=== PATIENT | female | born 1990 | race Caucasian/White ===

== ENCOUNTER 2016-11-05 22:18 | Emergency (ER) | payer OTHER ==
[~2016-11-05] VITALS: Ht 165.1 cm; Wt 67.3 kg
[~2016-11-05 22:18] MED LIST: CLONIDINE HCL0.2 MG PO; CONCERTA36 MG PO; IBUPROFEN800 MG PO; Motrin PO; PRENATAL TABLE1 EACH PO; Percocet 5/325,Endoc PO; ZOLOFT100 MG PO
[2016-11-05 22:43] LABS: HEMATOCRIT 44.4 % (36.0-46.0); MCH 31.5 PG (29.0-34.0); MCHC 33.8 G/DL (30.0-36.0); MCV 93.3 FL (83-99); MEAN PLAT.VOLUME 12.4 uM^3 (9.5-12.4); PLATELET COUNT 169 K/uL (156-360); RBC DIS.WIDTH-CV 11.9 % (11.8-14.6); RBC DIS.WIDTH-SD 39.8 % (39-53); RED BLOOD COUNT 4.76 M/uL (3.80-5.20); WHITE BLOOD COUNT 15.1 K/uL (4.1-10.2)
[2016-11-05 22:52] LABS: CHLORIDE 107 mEq/L (99-109); POTASSIUM 4.1 mEq/L (3.7-5.4); SODIUM 140 mEq/L (136-147)
[2016-11-05 22:54] LABS: GLUCOSE 72 mg/dL (70-99)
[2016-11-05 22:55] LABS: ANION GAP 8 MEQ/L (2-14)
[2016-11-05 22:58] LABS: GFR ESTIMATE (CALCULATED) > 59 mL/min/; UREA NITROGEN (BUN) 13 mg/dL (9-23)
[2016-11-05 23:54] LABS: D-DIMER ELISA 0.25 mg/L FEU (< 0.57)
[2016-11-06] LABS: TROP-I INTERPRETATION NEGATIVE; TROPONIN-I < 0.01 ng/mL (0.0-0.30)
[2016-11-06] MEDS ORDERED: ZITHROMAX Z-PA250 MG PO (00:32)
[2016-11-06 00:37] VITALS: BP 140/65
== END 2016-11-06 00:43 | disposition home or self-care (01) ==
LOC: RME 22:18 → EME 22:18 → RME 11-06 00:43
DX: J06.9 Acute upper respiratory infection, unspecified (principal); R07.89 Other chest pain; F17.200 Nicotine dependence, unspecified, uncomplicated
CPT/HCPCS: 71020; 80048; 84484; 85027; 85379; 93005; 99281; 99284

== ENCOUNTER 2017-06-10 07:48 | Day surgery (SDC) | payer OTHER ==
[~2017-06-10] VITALS: Ht 166.4 cm; Wt 73.5 kg
[~2017-06-10 07:48] MED LIST changes: +ATIVAN0.5 MG PO; +BUSPAR10 MG PO; +CATAPRES0.3 MG PO; +ZITHROMAX Z-PA250 MG PO
[2017-06-10] MEDS ORDERED: ZYRTEC5 MG PO (08:25)
[2017-06-10 08:35] VITALS: BP 113/59
[2017-06-10] MEDS ORDERED: DOXYCYCLINE MO100 M1 PO (11:03)
[2017-06-10] MEDS ORDERED: MOTRIN800 MG PO (11:03)
[2017-06-10 13:18] VITALS: BP 109/73
[2017-06-10 13:53] VITALS: BP 107/63
== END 2017-06-10 14:00 | disposition home or self-care (01) ==
LOC: SDC 07:48
PROC: 10D17ZZ Extraction of Products of Conception, Retained, Via Natural or Artificial Opening (ICD-10-PCS; principal; 2017-06-10)
DX: O03.4 Incomplete spontaneous abortion without complication (principal); Z3A.10 10 weeks gestation of pregnancy; F41.9 Anxiety disorder, unspecified; F17.210 Nicotine dependence, cigarettes, uncomplicated; Z83.42 Family history of familial hypercholesterolemia; Z82.49 Family history of ischemic heart disease and other diseases of the circulatory system; Z80.3 Family history of malignant neoplasm of breast; Z80.1 Family history of malignant neoplasm of trachea, bronchus and lung; Z82.3 Family history of stroke; Z83.3 Family history of diabetes mellitus
CPT/HCPCS: 88305; J1100; J1170; J1885; J2250; J2405; J2590; J3010

== ENCOUNTER 2017-06-19 11:21 | Emergency (ER) | payer OTHER ==
[~2017-06-19] VITALS: Ht 165.1 cm; Wt 70.5 kg
[~2017-06-19 11:21] MED LIST changes: +DOXYCYCLINE MO100 M1 PO; +MOTRIN800 MG PO; +ZYRTEC5 MG PO
[2017-06-19 12:26] LABS: HEMATOCRIT 35.5 % (36.0-46.0); MCH 32.3 PG (29.0-34.0); MCHC 34.1 G/DL (30.0-36.0); MCV 94.7 FL (83-99); RBC DIS.WIDTH-SD 41.5 % (39-53); RED BLOOD COUNT 3.75 M/uL (3.80-5.20); WHITE BLOOD COUNT 7.5 K/uL (4.1-10.2)
[2017-06-19 12:49] LABS: ANION GAP 6 MEQ/L (2-14); CHLORIDE 108 MEQ/L (99-109); POTASSIUM 3.7 MEQ/L (3.7-5.4); SAMPLE HEMOLYSIS CHECK 0; SAMPLE ICTERIC CHECK 0; SAMPLE LIPEMIA CHECK 0; SODIUM 140 MEQ/L (136-147)
[2017-06-19 12:55] LABS: GFR ESTIMATE (CALCULATED) > 59 mL/min/; GLUCOSE 87 mg/dL (70-99); UREA NITROGEN (BUN) 7 mg/dL (9-23)
[2017-06-19 13:22] LABS: MEAN PLAT.VOLUME 12.2 uM^3 (9.5-12.4); PLAT.SUFFICIENCY ADEQUATE; PLATELET COUNT 225 K/uL (156-360)
[2017-06-19 14:44] LABS: INTER. NORMALIZED RATIO 1.1; PROTHROMBIN TIME 11.9 SEC (10.2-12.9)
[2017-06-19 14:46] LABS: PTT 23.5 SEC (25-37)
[2017-06-19] MEDS ORDERED: TRAMADOL HCL50 MG PO (17:13)
[2017-06-19 17:59] VITALS: BP 123/75
== END 2017-06-19 18:10 | disposition home or self-care (01) ==
LOC: EME 11:21
PROVIDERS: Nurse Practitioner Family; Obstetrics & Gynecology
DX: O03.1 Delayed or excessive hemorrhage following incomplete spontaneous abortion (principal); O03.39 Incomplete spontaneous abortion with other complications; R53.83 Other fatigue; Z98.890 Other specified postprocedural states; F17.200 Nicotine dependence, unspecified, uncomplicated
CPT/HCPCS: 76856; 80048; 85027; 85610; 85730; 99281; 99285; J2210; J3010

== ENCOUNTER 2017-10-22 11:04 | Emergency (ER) | payer OTHER ==
[~2017-10-22] VITALS: Ht 165.1 cm; Wt 75.1 kg
[~2017-10-22 11:04] MED LIST changes: +TRAMADOL HCL50 MG PO
[2017-10-22 11:49] LABS: HEMATOCRIT 45.7 % (36.0-46.0); HEMOGLOBIN 15.2 G/DL (11.9-15.5); MCH 30.8 PG (29.0-34.0); MCHC 33.3 G/DL (30.0-36.0); MCV 92.7 FL (83-99); RBC DIS.WIDTH-SD 44.3 % (39-53); RED BLOOD COUNT 4.93 M/uL (3.80-5.20); WHITE BLOOD COUNT 7.6 K/uL (4.1-10.2)
[2017-10-22 12:00] LABS: ALBUMIN 4.2 g/dL (3.2-4.8)
[2017-10-22 12:01] LABS: CHLORIDE 110 mEq/L (99-109); POTASSIUM 4.7 mEq/L (3.7-5.4); SODIUM 143 mEq/L (136-147)
[2017-10-22 12:03] LABS: GLUCOSE 75 mg/dL (70-99); TOTAL PROTEIN 7.7 g/dL (6.4-8.3)
[2017-10-22 12:05] LABS: TOTAL BILIRUBIN 0.5 mg/dL (0.0-1.0)
[2017-10-22 12:06] LABS: ALKALINE PHOSPHATASE 76 IU/L (3-129); GFR ESTIMATE (CALCULATED) > 59 mL/min/
[2017-10-22 12:08] LABS: AST (GOT) 21 IU/L (2-34); UREA NITROGEN (BUN) 16 mg/dL (9-23)
[2017-10-22 12:09] LABS: ALT (GPT) 19 IU/L (3-49)
[2017-10-22 12:15] LABS: QUANTITATIVE HCG < 4.0 MIU/ML
[2017-10-22 12:23] LABS: PLAT.SUFFICIENCY ADEQUATE; PLATELET COUNT 204 K/uL (156-360)
[2017-10-22 13:11] LABS: APPEARANCE CLOUDY ((CLEAR)); BILIRUBIN NEGATIVE; BLOOD LARGE; COLOR YELLOW ((YELLOW)); GLUCOSE (STRIP) NEGATIVE; KETONES NEGATIVE; LEUKOCYTES MODERATE; NITRITE NEGATIVE; PROTEIN (STRIP) NEGATIVE; SPECIFIC GRAVITY 1.024 (1.000-1.030); UROBILINOGEN 0.2 MG/DL (0.2-1.0)
[2017-10-22 13:21] LABS: LIPASE 28 U/L (1.0-51.0)
[2017-10-22 13:46] LABS: BACTERIA RARE /HPF; EPITHELIAL CELLS 2+ /HPF; HYALINE CASTS 0-5 /LPF; MUCUS TRACE /LPF; RED BLOOD CELLS 0-5 /HPF (0-5); UCUL ADDED? YES; WHITE BLOOD CELLS 15-20 /HPF (0-5)
[2017-10-22] MEDS ORDERED: CITRATE OF MAG296 ML PO (14:24)
[2017-10-22 15:02] VITALS: BP 114/71
== END 2017-10-22 15:04 | disposition home or self-care (01) ==
LOC: EME 11:04
DX: R10.9 Unspecified abdominal pain (principal); F32.9 Major depressive disorder, single episode, unspecified; F41.9 Anxiety disorder, unspecified; F90.9 Attention-deficit hyperactivity disorder, unspecified type; F17.200 Nicotine dependence, unspecified, uncomplicated
CPT/HCPCS: 74020; 80053; 81003; 83690; 84702; 85027; 87086; 99281; 99284

== ENCOUNTER 2017-12-31 03:22 | Emergency (ER) | payer OTHER ==
[~2017-12-31] VITALS: Ht 165.1 cm; Wt 79.9 kg
[~2017-12-31 03:22] MED LIST changes: +CITRATE OF MAG296 ML PO
[2017-12-31 04:53] LABS: BASOPHIL (%) 0.3 % (0-1); EOSINOPHIL (%) 3.2 % (0-5); EOSINOPHIL COUNT 0.3 K/uL (0-0.3); HEMATOCRIT 36.5 % (36.0-46.0); HEMOGLOBIN 12.8 G/DL (11.9-15.5); IMMATURE GRANULOCYTE (%) 0.3 % (0.0-0.7); LYMPHOCYTE (%) 30.9 % (15-42); LYMPHOCYTE COUNT 2.9 K/uL (1.0-2.8); MCH 32.6 PG (29.0-34.0); MCHC 35.1 G/DL (30.0-36.0); MCV 92.9 FL (83-99); MONOCYTE (%) 8.7 % (3-12); MONOCYTE COUNT 0.8 K/uL (0-0.8); NEUTROPHIL (%) 56.6 % (45-76); NEUTROPHIL COUNT 5.3 K/uL (1.8-6.4); PLATELET COUNT 161 K/uL (156-360); RBC DIS.WIDTH-CV 12.5 % (11.8-14.6); RBC DIS.WIDTH-SD 43.3 % (39-53); RED BLOOD COUNT 3.93 M/uL (3.80-5.20); WHITE BLOOD COUNT 9.3 K/uL (4.1-10.2)
[2017-12-31 05:00] LABS: CHLORIDE 107 mEq/L (99-109); POTASSIUM 3.8 mEq/L (3.7-5.4); SODIUM 134 mEq/L (136-147)
[2017-12-31 05:02] LABS: GLUCOSE 83 mg/dL (70-99)
[2017-12-31 05:02] LABS: APPEARANCE CLEAR ((CLEAR)); BILIRUBIN NEGATIVE; BLOOD SMALL; COLOR YELLOW ((YELLOW)); GLUCOSE (STRIP) NEGATIVE; KETONES NEGATIVE; LEUKOCYTES NEGATIVE; NITRITE NEGATIVE; PROTEIN (STRIP) NEGATIVE; SPECIFIC GRAVITY 1.024 (1.000-1.030); UROBILINOGEN 0.2 MG/DL (0.2-1.0)
[2017-12-31 05:06] LABS: CREATININE 0.6 mg/dL (0.6-1.3); GFR ESTIMATE (CALCULATED) > 59 mL/min/
[2017-12-31 05:07] LABS: UREA NITROGEN (BUN) 13 mg/dL (9-23)
[2017-12-31 05:08] LABS: BACTERIA NONE SEEN /HPF; EPITHELIAL CELLS RARE /HPF; MUCUS TRACE /LPF; RED BLOOD CELLS 0-5 /HPF (0-5); UCUL ADDED? NO; WHITE BLOOD CELLS 0-5 /HPF (0-5)
[2017-12-31 05:32] LABS: QUANTITATIVE HCG 62118.3 MIU/ML
[2017-12-31 06:02] VITALS: BP 97/62
== END 2017-12-31 06:02 | disposition home or self-care (01) ==
LOC: EME 03:22
PROVIDERS: Emergency Medicine
DX: O20.8 Other hemorrhage in early pregnancy (principal); Z3A.10 10 weeks gestation of pregnancy; O99.341 Other mental disorders complicating pregnancy, first trimester; F41.9 Anxiety disorder, unspecified; F32.9 Major depressive disorder, single episode, unspecified; F90.9 Attention-deficit hyperactivity disorder, unspecified type; O99.331 Smoking (tobacco) complicating pregnancy, first trimester; F17.200 Nicotine dependence, unspecified, uncomplicated
CPT/HCPCS: 76801; 80048; 81003; 84702; 85025; 99281; 99284

== ENCOUNTER 2018-04-28 09:45 | Emergency (ER) | payer OTHER ==
[~2018-04-28] VITALS: Ht 165.1 cm; Wt 88.9 kg
[2018-04-28] MEDS ORDERED: VENTOLIN HFA18 GM IH (12:36)
[2018-04-28 12:52] VITALS: BP 118/75
== END 2018-04-28 12:59 | disposition home or self-care (01) ==
LOC: EME 09:45
DX: O99.512 Diseases of the respiratory system complicating pregnancy, second trimester (principal); J20.9 Acute bronchitis, unspecified; Z3A.27 27 weeks gestation of pregnancy; O99.342 Other mental disorders complicating pregnancy, second trimester; F32.9 Major depressive disorder, single episode, unspecified; F41.9 Anxiety disorder, unspecified; F90.9 Attention-deficit hyperactivity disorder, unspecified type; O99.332 Smoking (tobacco) complicating pregnancy, second trimester; F17.200 Nicotine dependence, unspecified, uncomplicated; Z88.8 Allergy status to other drugs, medicaments and biological substances
CPT/HCPCS: 94640; 99281; 99285; J1100

== ENCOUNTER 2018-06-17 14:41 | Outpatient (CLI) | payer OTHER ==
[~2018-06-17] VITALS: Ht 167.6 cm; Wt 92.9 kg
[2018-06-17] VITALS (7 sets, daily range): BP systolic 116–142; BP diastolic 61–77
[~2018-06-17 14:41] MED LIST changes: +VENTOLIN HFA18 GM IH
[2018-06-17 16:12] LABS: APPEARANCE SL.HAZY ((CLEAR)); BILIRUBIN NEGATIVE; BLOOD NEGATIVE; COLOR YELLOW ((YELLOW)); GLUCOSE (STRIP) NEGATIVE; KETONES NEGATIVE; LEUKOCYTES NEGATIVE; NITRITE NEGATIVE; PROTEIN (STRIP) NEGATIVE; SPECIFIC GRAVITY 1.006 (1.000-1.030); UROBILINOGEN 0.2 MG/DL (0.2-1.0)
[2018-06-17 16:25] LABS: AMPHETAMINE NEGATIVE (500 ng/mL); BARBITURATES NEGATIVE (200 ng/mL); BENZODIAZEPINES NEGATIVE (150 ng/mL); BUPRENORPHINE NEGATIVE (10 ng/mL); COCAINE NEGATIVE (150 ng/mL); METHADONE NEGATIVE (200 ng/mL); METHAMPHETAMINE NEGATIVE (500 ng/mL); OPIATES (MORPHINE) NEGATIVE (100 ng/mL); OXYCODONE NEGATIVE (100 ng/mL); PHENCYCLIDINE NEGATIVE (25 ng/mL); PROPOXYPHENE NEGATIVE (300 ng/mL); THC CANNABINOIDS NEGATIVE (50 ng/mL); TRICYCLIC ANTIDEPRESSANTS NEGATIVE (300 ng/mL)
[2018-06-17 16:53] LABS: BACTERIA 1+ /HPF; EPITHELIAL CELLS 3+ /HPF; MUCUS TRACE /LPF; RED BLOOD CELLS 0-5 /HPF (0-5); UCUL ADDED? NO; WHITE BLOOD CELLS 0-5 /HPF (0-5)
[2018-06-17 21:31] LABS: HEMATOCRIT 36.9 % (36.0-46.0); HEMOGLOBIN 12.5 G/DL (11.9-15.5); MCH 32.4 PG (29.0-34.0); MCHC 33.9 G/DL (30.0-36.0); MCV 95.6 FL (83-99); RBC DIS.WIDTH-CV 12.5 % (11.8-14.6); RBC DIS.WIDTH-SD 43.1 % (39-53); RED BLOOD COUNT 3.86 M/uL (3.80-5.20); WHITE BLOOD COUNT 17.6 K/uL (4.1-10.2)
[2018-06-17 21:43] LABS: PLATELET COUNT 168 K/uL (156-360)
[2018-06-18 00:29] VITALS: BP 122/71
[2018-06-18] MEDS ORDERED: CLONIDINE HCL0.3 MG PO (00:56)
[2018-06-18 02:00] VITALS: BP 117/66
[2018-06-18 03:03] VITALS: BP 120/59
[2018-06-18 03:27] VITALS: BP 131/69
[2018-06-18 06:39] VITALS: BP 123/68
[2018-06-18 08:54] VITALS: BP 115/61
== END 2018-06-18 10:01 | disposition home or self-care (01) ==
LOC: LDRP-OP 14:41 → 2WEST 14:42 → LDRP-OP 08-22 11:40
PROVIDERS: Advanced Practice Midwife; Obstetrics & Gynecology
DX: O60.03 Preterm labor without delivery, third trimester (principal); Z3A.34 34 weeks gestation of pregnancy; O40.3XX0 Polyhydramnios, third trimester, not applicable or unspecified
CPT/HCPCS: 59025; 81003; 85027; 86850; 86900; 86901; 87081; 87086; G0378; J0595; J0702; J2540; J3105; J7120

== ENCOUNTER 2018-06-18 15:47 | Outpatient (CLI) | payer OTHER ==
[~2018-06-18 15:47] MED LIST changes: +CLONIDINE HCL0.3 MG PO
[2018-06-18 15:57] VITALS: BP 132/72
== END 2018-06-18 17:00 | disposition home or self-care (01) ==
LOC: LDRP-OP 15:47 → 2WEST 15:50 → LDRP-OP 08-22 10:06
DX: O60.03 Preterm labor without delivery, third trimester (principal); Z3A.34 34 weeks gestation of pregnancy; O40.3XX0 Polyhydramnios, third trimester, not applicable or unspecified
CPT/HCPCS: 59025; G0378; J0702

== ENCOUNTER 2018-06-21 11:33 | Outpatient (CLI) | payer OTHER ==
[2018-06-21 11:49] VITALS: BP 127/82
== END 2018-06-21 15:15 | disposition home or self-care (01) ==
LOC: LDRP-OP 11:33 → 2WEST 11:34 → LDRP-OP 08-22 17:18
DX: O26.893 Other specified pregnancy related conditions, third trimester (principal); R10.2 Pelvic and perineal pain; Z87.51 Personal history of pre-term labor; Z3A.35 35 weeks gestation of pregnancy
CPT/HCPCS: 59025; G0378; J7120

== ENCOUNTER 2018-06-22 10:48 | Outpatient (CLI) | payer OTHER ==
[2018-06-22 11:08] VITALS: BP 131/83
[2018-06-22 11:52] LABS: APPEARANCE SL.HAZY ((CLEAR)); BILIRUBIN NEGATIVE; BLOOD NEGATIVE; COLOR YELLOW ((YELLOW)); GLUCOSE (STRIP) NEGATIVE; KETONES NEGATIVE; LEUKOCYTES TRACE; NITRITE NEGATIVE; PROTEIN (STRIP) NEGATIVE; UROBILINOGEN 0.2 MG/DL (0.2-1.0)
[2018-06-22 11:53] LABS: BASOPHIL (%) 0.3 % (0-1); BASOPHIL COUNT 0.1 K/uL (0-0.1); EOSINOPHIL (%) 3.4 % (0-5); EOSINOPHIL COUNT 0.5 K/uL (0-0.3); HEMATOCRIT 38.5 % (36.0-46.0); HEMOGLOBIN 12.7 G/DL (11.9-15.5); IMMATURE GRANULOCYTE (%) 0.7 % (0.0-0.7); LYMPHOCYTE (%) 13.8 % (15-42); LYMPHOCYTE COUNT 2.1 K/uL (1.0-2.8); MCH 31.5 PG (29.0-34.0); MCV 95.5 FL (83-99); MONOCYTE (%) 10.1 % (3-12); MONOCYTE COUNT 1.6 K/uL (0-0.8); NEUTROPHIL (%) 71.7 % (45-76); NEUTROPHIL COUNT 11.1 K/uL (1.8-6.4); PLATELET COUNT 183 K/uL (156-360); RBC DIS.WIDTH-CV 12.1 % (11.8-14.6); RBC DIS.WIDTH-SD 42.7 % (39-53); RED BLOOD COUNT 4.03 M/uL (3.80-5.20); WHITE BLOOD COUNT 15.5 K/uL (4.1-10.2)
[2018-06-22 11:56] LABS: BACTERIA RARE /HPF; EPITHELIAL CELLS 2+ /HPF; MUCUS TRACE /LPF; RED BLOOD CELLS 0-5 /HPF (0-5); UCUL ADDED? YES
[2018-06-22 12:00] LABS: ALBUMIN 3.3 g/dL (3.2-4.8)
[2018-06-22 12:01] LABS: CHLORIDE 106 mEq/L (99-109); SODIUM 139 mEq/L (136-147)
[2018-06-22 12:03] LABS: GLUCOSE 86 mg/dL (70-99); TOTAL PROTEIN 6.3 g/dL (6.4-8.3)
[2018-06-22 12:05] LABS: TOTAL BILIRUBIN 0.2 mg/dL (0.0-1.0)
[2018-06-22 12:06] LABS: ALKALINE PHOSPHATASE 142 IU/L (3-129)
[2018-06-22 12:07] LABS: CREATININE 0.6 mg/dL (0.6-1.3); GFR ESTIMATE (CALCULATED) > 59 mL/min/
[2018-06-22 12:08] LABS: AST (GOT) 15 IU/L (2-34); UREA NITROGEN (BUN) 8 mg/dL (9-23)
[2018-06-22 12:09] LABS: ALT (GPT) 16 IU/L (3-49)
[2018-06-22 12:10] LABS: URIC ACID 2.4 mg/dL (3.1-9.2)
[2018-06-22 12:19] VITALS: BP 125/80
[2018-06-22 12:35] LABS: LACTATE DEHYDROGENASE 118 IU/L (20-246)
[2018-06-22 13:32] VITALS: BP 132/77
== END 2018-06-22 13:50 | disposition home or self-care (01) ==
LOC: LDRP-OP 10:48 → 2WEST 10:49 → LDRP-OP 08-22 16:38
PROVIDERS: Advanced Practice Midwife
DX: O16.3 Unspecified maternal hypertension, third trimester (principal); Z3A.35 35 weeks gestation of pregnancy; O99.333 Smoking (tobacco) complicating pregnancy, third trimester
CPT/HCPCS: 59025; 80053; 81003; 82570; 83615; 84156; 84550; 85025; 87086; G0378